=== PATIENT | male | born 1955 | race Two or more races ===

== ENCOUNTER → 2020-04-05 | Outpatient (CLI) | payer SELFPAY ==
--- NOTE | 2020-04-05 17:46 | RAD ---
INDICATION: Testicular pain. COMPARISON: None. TECHNIQUE: Grayscale, color and spectral doppler ultrasound images obtained of the scrotum. FINDINGS: Right Testicle: 58 x 27 x 25 mm. Vascular flow is identified. Left Testicle: 52 x 29 x 28 mm. Vascular flow is identified. Large right and small left hydrocele. IMPRESSION: * Vascular flow seen to the testicles. * Large right and small left hydrocele. Electronically signed by: Eleazar Figueroa MD (04/05/2020 5:43 PM) [id number]
== END | disposition home or self-care (01) ==
LOC: US 16:46
PROVIDERS: ATTEND Preventive Medicine Occupational Medicine
DX: N43.2 Other hydrocele (principal)
CPT/HCPCS: 76870